=== PATIENT | female | born 1950 | race Caucasian/White ===

== ENCOUNTER 2016-07-19 09:40 | Inpatient (IN) | payer MEDICARE, BC ==
[2016-07-18 12:58] VITALS: BMI 19.6
[2016-07-19] VITALS (23 sets, daily range): BP systolic 84–135; BP diastolic 57–73; PULSE 58–76; RESP 12–25; Ht 154.9 cm; Wt 44.7 kg
[~2016-07-19] VITALS: Ht 154.9 cm; Wt 44.7 kg
[~2016-07-19 09:40] MED LIST: ACETAMINOPHEN 1000 MG/100 ML IVPB ONE; BACITRACIN 50000 UNITS INJ IRR ONE; GENTAMICIN 80 MG INJ INJ ONE; POLYMYXIN/BACITRACIN 1L IRRIG IRR ONE; ROCURONIUM 50 MG INJ ONE; THROMBIN 5000 UNIT VIAL TOP ONE
[2016-07-19] MEDS ORDERED: ESCI10TA PO (10:40)
[2016-07-19] MEDS ORDERED: PANT40SU PO (10:40)
[2016-07-19] MEDS ORDERED: BUPR-75 PO (10:40)
--- NOTE | 2016-07-19 10:58 | HPN ---
Date/Time of Note Date/Time of Note DATE: 07/19/16 TIME: 10:57 Interval H&P Admission Note Pt. seen H&P reviewed: No system changes WILFRED JIMENEZ MD Jul 19, 2016 10:58
[2016-07-19] MEDS ORDERED: VANCOMYCIN 1 GM (PMX) 250 ML IVPB ONE (11:00)
[2016-07-19] MEDS ORDERED: PROPOFOL 100 ML ONE (11:05)
[2016-07-19] MEDS ORDERED: ROPIVACAINE 0.5 % 30 ML VIAL ONE (11:05)
[2016-07-19] MEDS ORDERED: ROCURONIUM 50 MG INJ ONE (11:05)
[2016-07-19] MEDS ORDERED: MIDAZOLAM 1 MG/ML 2 ML INJ ONE (11:05)
[2016-07-19] MEDS ORDERED: FENTAnyl 50 MCG/ML VIAL ONE (11:05)
[2016-07-19] MEDS ORDERED: TRANEXAMIC ACID 1,000 MG in SOD CHLORIDE 0.9% 100 ML IV ONE (11:30)
[2016-07-19] MEDS ORDERED: PHENYLephrine (100 MCG/ML) 5ML SYG ONE (11:31)
[2016-07-19] MEDS ORDERED: THROMBIN 5000 UNIT VIAL ONE (12:32)
[2016-07-19] MEDS ORDERED: GELATIN SIZE 100 SPONGE ONE (12:32)
[2016-07-19] MEDS ORDERED: METOCLOPRAMIDE 10 MG INJ ONE (13:03)
[2016-07-19] MEDS ORDERED: DEXAMETHASONE 4 MG/ML 1 ML INJ ONE (13:03)
[2016-07-19] MEDS ORDERED: ONDANSETRON 4 MG INJ ONE (13:03)
[2016-07-19] MEDS ORDERED: FAMOTIDINE 20 MG INJ ONE (13:03)
[2016-07-19] MEDS ORDERED: KETOROLAC 30 MG INJ ONE (13:03)
[2016-07-19] MEDS ORDERED: GENTAMICIN 80 MG INJ ONE ×2 (14:25→14:28)
[2016-07-19] MEDS ORDERED: morphine (1 MG/ML) 10ML SYRINGE IV PRN ×3 (14:30)
[2016-07-19] MEDS ORDERED: HYDROmorphONE (0.2 MG/ML) 10ML SYG IV PRN ×3 (14:30)
[2016-07-19] MEDS ORDERED: hydrALAzine 20 MG INJ IV PRN (14:30)
[2016-07-19] MEDS ORDERED: ALBUMIN HUMAN 5% 250 ML IV PRN (14:30)
[2016-07-19] MEDS ORDERED: METOCLOPRAMIDE 10 MG INJ IV PRN (14:30)
[2016-07-19] MEDS ORDERED: EPHEDrine SULFATE 50 MG/5 ML SYG IV PRN (14:30)
[2016-07-19] MEDS ORDERED: FENTAnyl 50 MCG/ML VIAL IV PRN ×3 (14:30)
[2016-07-19] MEDS ORDERED: DIPHENHYDRAMINE 50 MG INJ IV PRN ×2 (14:30→15:00)
[2016-07-19] MEDS ORDERED: ONDANSETRON 4 MG INJ IV PRN ×2 (14:30→15:00)
[2016-07-19] MEDS: LACTATED RINGER'S 1,000 ML IV SCH ×2 (14:41→22:10)
[2016-07-19] MEDS ORDERED: BISACODYL 10 MG SUPP PR PRN (15:00)
[2016-07-19] MEDS ORDERED: HYDROmorphONE 1 MG/ML SYG IV PRN (15:00)
[2016-07-19] MEDS ORDERED: ZOLPIDEM 5 MG TAB PO PRN (15:00)
[2016-07-19] MEDS ORDERED: MAGNESIUM HYDROXIDE 30ML CUP PO PRN (15:00)
[2016-07-19] MEDS ORDERED: KETOROLAC 15 MG INJ IV PRN (15:00)
--- NOTE | 2016-07-19 15:11 | PDOCDIS ---
Discharge Instructions DIAGNOSIS Discharge Diagnosis: s/p left total shoulder replacement CONDITION Patient Condition: Good HOME CARE INSTRUCTIONS: Diet Instructions: Regular ACTIVITY: Activity Restrictions: Avoid heavy lifting Do not Drive Avoid Heavy Housework Bathing Restrictions: ShowerActivity Restrictions Comment: Stay in sling unless bathing. No lifting. FOLLOW UP/APPOINTMENTS Appointments As scheduled with Dr Jimenez: 1-2 weeks. OTHER ORDERS: Other Orders: May shower with mepilex dressing. Leave dressing on x 5 days, but remove it if it becomes detached. Must wear sling in public x 6 weeks. SCHOOL/WORK RELEASE May return to School/Work on: Sep 06, 2016 WILFRED JIMENEZ MD Jul 19, 2016 15:11
--- NOTE | 2016-07-19 15:53 | RADRPT ---
PROCEDURE: XR left Shoulder. CLINICAL INDICATION: Postoperative evaluation left shoulder TECHNIQUE: 2 views of the left shoulder are available for review. COMPARISON: None available FINDINGS: There is a left shoulder total arthroplasty in anatomic alignment without evidence of hardware comp lication. There is surrounding soft tissue swelling and soft tissue gas. There is moderate acromio clavicular osteoarthrosis. There is nonspecific presumed atelectasis at the left lung base. IMPRESSION: Left shoulder total arthroplasty in anatomic alignment as above. RPTAT: UU .Juan Carlos Hameed MD, MD Date Time Electronically viewed and signed by .Juan Carlos Hameed MD, MD on 07/19/2016 15:52 .K/
--- NOTE | 2016-07-19 17:07 | OPR ---
DATE OF OPERATION: 07/19/2016 PREOPERATIVE DIAGNOSIS: Left shoulder end-stage primary osteoarthritis. POSTOPERATIVE DIAGNOSES: Left shoulder end-stage primary osteoarthritis. PROCEDURE PERFORMED: Left total shoulder arthroplasty (uncemented subscapularis peel). SURGEON: Dr. Goode. DISPATCHER CHIEF COAL SLURRY: Dr. Bahman Bush. ANESTHESIA: General endotracheal with regional block. ANESTHESIOLOGIST: Dr. Maynard. ESTIMATED BLOOD LOSS: 150 mL. COMPLICATIONS: None. SPECIMENS: None. IMPLANTS: [employer]ech size 9 uncemented stem, size small Alpha cage glenoid, 4.5 mm replicator plate, size 41 x 16 mm humeral head. INDICATIONS: Jenna is a 66-year-old female who developed progressive left shoulder pain and disabi lity. X-rays and MRI scan revealed end-stage primary osteoarthritis but an intact rotator cuff. Af ter failing conservative measures, she elected to proceed with surgical intervention. DESCRIPTION OF PROCEDURE: The patient was brought to the operating room and placed supine on operat ing table. She was placed in the beach chair position. An uncomplicated regional block had been pl aced by the anesthesiologist. General anesthesia was induced. The correct surgical site had been i dentified and marked preoperatively. She was given prophylactic antibiotics as well as tranexamic a jered. The left upper extremity was prepped and draped in sterile surgical fashion. The arm was plac ed in an arm craven. A time-out was called. A standard deltopectoral incision was made and carried down to the deltopectoral interval. The [facility] alic vein was identified and taken laterally. It was protected throughout the case. A subdeltoid r elease was performed, and the supraspinatus was noted to be intact. The subscapularis was also inta ct. A self-retaining retractor was placed under the deltoid as well as carefully placed under the c onjoined tendon. The upper 1 cm of the pectoralis was released, and the biceps was identified. The biceps had significant synovitis but was otherwise intact. The bicipital groove was opened up. Th e biceps was tenodesed with a [id number] #2 suture to the upper border of the pectoralis. The proximal biceps was then excised. The bicipital groove was carefully prepared with the Bovie, and h emostasis was achieved. Using a scalpel, a subscapularis peel was performed, releasing the subscapu ck from the lesser tuberosity. Using a Bovie and progressively externally rotating the shoulder, the release of the subscapularis and anterior capsule was taken around inferiorly and posteriorly u ntil the shoulder could be dislocated. The humerus was dislocated, and retractors were carefully placed around the humeral head. There wer e small osteophytes which were removed. Using an oscillating saw, a humeral head osteotomy was per formed, cutting the humeral head anatomically in approximately 22 degrees of retroversion. The prox imal humerus was prepared with a reamer and prepared with sequential reaming and broaching up to a s ize 9. Drill holes were placed on either side of the lesser tuberosity and three #5 sutures were pa ssed in the bone lateral to the lesser tuberosity, around the humeral stem, and out the bone medial to the lesser tuberosity. A size 9 uncemented stem was then impacted without complication, achievin g a very good fit. A stem protector was placed, and attention was turned to the glenoid. The glenoid had end-stage osteoarthritis. A Uribe retractor was placed posteriorly, and the upper as pect of the subscapularis was released from beneath the coracoid all the way down to the glenoid. T he anterior capsule was excised. The anterior, inferior, and posterior labrum was also excised. An anterior shoulder retractor was placed over the anterior edge of the glenoid once the release had b een completed far enough to allow the surgeon's finger to palpate the glenoid neck. The glenoid side templated to a size small. Using the standard guide, a center peg hole was placed in the glenoid, and the glenoid was reamed with a size small reamer. Subchondral bone was left inta ct. Peripheral peg holes were drilled, and cement was mixed. Thrombin soaked Gelfoam sponges were used to obtain hemostasis within the peripheral peg hole. The cement was then placed in the 3 perip heral peg holes and impacted several times. A size small Alpha cage glenoid with bone graft in the center peg was then placed and impacted into place with a mallet, achieving an excellent fit. Attention was returned to the humerus. A size 4.5 mm replicator plate was affixed to the proximal h umeral stem, and a size 41 head was trialed to be most effective. A standard 41 x 17 mm head was th en impacted onto the humeral neck. The shoulder was reduced again and noted to have excellent stabi lity with 60% posterior subluxation, which self-reduced. The shoulder was copiously irrigated with pulse lavage throughout the case. The subscapularis was t hen repaired with the #5 sutures. A #2 FiberWire stitch was placed in the lateral aspect of the rota tor interval to augment the repair. A spinal needle was percutaneously placed into the joint for an injection of gentamicin at the end o f the case. The shoulder was again copiously irrigated and instruments were removed. The deltopectoral interval was closed with a running 0 Vicryl suture followed by a standard layered closure, ending with a Mep ilex dressing. 160 mg of gentamicin were then injected intraarticularly for antibiotic prophylaxis. The patient was placed in an UltraSling and brought to recovery room in stable condition. There w ere no complications DISPATCHER CHIEF COAL SLURRY: The assistance of Dr. Bush was essential throughout this case to help position the jacob ulder and space, to allow safe access to all areas of the shoulder joint, assist with placement of r etractors, performing the osteotomy, preparing the bone and implanting shoulder prosthesis. A skill ed general office assistant is always necessary in these cases. Dictated By: WILFRED RUDOLPH/MAIKOL Conf#: [id number] DID#: [id number]
[2016-07-19] MEDS ORDERED: DIAZEPAM 5 MG TAB PO PRN (18:00)
[2016-07-19] MEDS ORDERED: PANTOPRAZOLE (EC) 40 MG TAB PO SCH (18:00)
--- NOTE | 2016-07-19 18:28 | CONS ---
DATE OF ADMISSION: 07/19/2016 DATE OF CONSULTATION: 07/19/[address] Dr. Goode, Thank you very much for allowing me to evaluate this 66-year-old female who just underwent left shou lder surgery. HISTORICAL EVENTS: As you well know, this patient has had progressive pain involving her left shoul audrey and ultimately underwent surgery earlier today. Postoperatively, she notes minimal discomfort i nvolving his shoulder. She denies cough, wheezing, shortness of breath, nausea, vomiting, abdominal or chest pain. PAST MEDICAL HISTORY: Includes: 1. History of dyspepsia. 2. Depression. 3. Osteopenia. 4. Former smoker. 5. History of neck lift, breast augmentation, history of gastric ulcer and foot bunionectomy surger y. SOCIAL HISTORY: Socially drinks. Unemployed presently. FAMILY HISTORY: Positive for cerebrovascular disease. ALLERGIES: INCLUDE KEFLEX AND MACROBID. MEDICATIONS: 1. Abilify 5 mg per day. 2. Ambien 10 mg at bedtime p.r.n. 3. Vitamin D/calcium 250/125 b.i.d. 6. Lexapro 10 mg per day. 7. Protonix 20 mg b.i.d. 8. Valium 10 mg p.r.n. 9. Wellbutrin 450 mg daily. PHYSICAL EXAMINATION: GENERAL: Christoval female in no acute distress. VITAL SIGNS: Blood pressure 122/80, pulse 70, respirations are 20, she was afebrile. EYES: Extraocular muscles were full. NOSE, MOUTH, AND THROAT: Normal. NECK: Supple. There was no jugular venous distention, thyroid enlargement or adenopathy. Carotids 2+. LUNGS: Clear. HEART: Rhythm regular. ABDOMEN: Nontender. Liver and spleen were not palpable. No masses or tenderness were noted. EXTREMITIES: No edema. Calves nontender. Pulses 2+. IMPRESSION: 1. Stable postop left shoulder surgery. 2. History of depression. Meds to be reviewed with the patient and continued. 3. History of gastroesophageal reflux disease. Proton pump inhibitor will be continued. 4. We will evaluate daily for signs and symptoms of thromboembolic disease, although I expect her to be quite mobile soon. Dictated By: JONNA MEADOWS/MAIKOL Conf#: [id number] DID#: [id number]
[2016-07-19] MEDS: SENNA/DOCUSATE NA (8.6MG/50MG) TAB PO SCH (20:35)
[2016-07-19] MEDS ORDERED: GABAPENTIN 300 MG CAP PO SCH (21:00)
[2016-07-19] MEDS: VANCOMYCIN 500MG/NS (PMX) 100 ML IVPB SCH (22:10)
[2016-07-20] MEDS: LACTATED RINGER'S 1,000 ML IV SCH (05:03)
[2016-07-20 05:16] LABS: BASOPHILS % 0.3 % (0.0-2.0); EOSINOPHILS % 0.2 % (0.0-7.0); HEMATOCRIT 35.7 % (37.0-47.0); HEMOGLOBIN 12.1 g/dl (12.0-16.0); LYMPHOCYTES % 9.3 % (15.0-51.0); MEAN CORPUSCULAR HEMOGLOBIN 30.7 pg (29.0-33.0); MEAN CORPUSCULAR HGB CONC 33.8 g/dl (32.0-37.0); MEAN CORPUSCULAR VOLUME 90.7 fl (82.0-101.0); MEAN PLATELET VOLUME 7.7 fl (7.4-10.4); MONOCYTE # 0.8 10^3/ul (0.3-0.9); MONOCYTES % 7.2 % (0.0-11.0); NEUTROPHIL # 8.7 10^3/ul (1.6-7.5); PLATELET COUNT 245 10^3/UL (140-440); RED BLOOD COUNT 3.94 10^6/ul (4.20-5.40); RED CELL DISTRIBUTION WIDTH 14.2 % (11.5-14.5); UNCORRECTED WBC 10.5 10^3/ul (4.8-10.8); WHITE BLOOD COUNT 10.5 10^3/ul (4.8-10.8)
[2016-07-20 05:25] LABS: CONDITION 1
[2016-07-20 05:30] LABS: POTASSIUM 4.2 mmol/L (3.5-5.1)
[2016-07-20 05:32] LABS: CREATININE 0.83 mg/dl (0.44-1.00)
[2016-07-20 05:33] LABS: CALCIUM 8.2 mg/dl (8.4-10.2)
[2016-07-20] MEDS ORDERED: PANTOPRAZOLE (EC) 40 MG TAB PO SCH (07:50)
[2016-07-20 08:09] VITALS: BP 126/60; RESP 18
--- NOTE | 2016-07-20 08:39 | PN ---
Date/Time of Note Date/Time of Note DATE: 07/20/16 TIME: 08:34 Assessment/Plan VTE Prophylaxis VTE Prophylaxis Intervention: ambulation, SCD's Lines/Catheters IV Catheter Type (from Nrs): Peripheral IV Assessment/Plan Chief Complaint/Hosp Course STABLE COURSE, DOING WELL S/P LEFT TSA Problems: (1) Primary osteoarthritis, left shoulder Status: Resolved (2) S/P shoulder replacement Onset Date: 07/19/2016 Status: Acute Qualifiers: Laterality: left Qualified Code: Z96.612 - S/P shoulder replacement, left Assessment/Plan MOBILIZE WITH PT AND OT TODAY SLING ON AT ALL TIMES EXCEPT WHEN WITH PT/OT DISCHARGE HOME TODAY AFTER PT/OT Subjective 24 Hr Interval Summary Constitutional: no complaints Eyes: no complaints ENT: no complaints Cardiovascular: no complaints Gastrointestinal: no complaints Genitourinary: no complaints Musculoskeletal: no complaints Skin: no complaints Neurologic: no complaints Exam/Review of Systems Vital Signs Vitals Vital Signs Date Time Temp Pulse Resp B/P Pulse Ox O2 Delivery O2 Flow Rate FiO2 07/20/16 08:09 97.9 66 18 126/60 95 07/19/16 18:15 Room Air 07/19/16 15:33 2.0 Intake and Output 07/19/16 07/19/16 07/20/16 15:00 23:00 07:00 Intake Total 540 ml 1955 ml Output Total 600 ml Balance -60 ml 1955 ml Exam SLING IN PLACE. ARM AND HAND NVI. Constitutional: alert, oriented Psych: no complaints Extremities: normal pulses Results Result Diagram: 07/20/16 0420 07/20/16 0420 Results 24 hrs Laboratory Tests Test 07/20/16 04:20 Anion Gap 12 Basophils # 0.0 Basophils % 0.3 Blood Urea Nitrogen 13 Calcium Level 8.2 L Carbon Dioxide Level 27 Chloride Level 107 Creatinine 0.83 Eosinophils # 0.0 Eosinophils % 0.2 Glucose Level 90 Hematocrit 35.7 L Hemoglobin 12.1 Lymphocytes # 1.0 Lymphocytes % 9.3 L Mean Corpuscular Hemoglobin 30.7 Mean Corpuscular Hemoglobin Concent 33.8 Mean Corpuscular Volume 90.7 Mean Platelet Volume 7.7 Monocytes # 0.8 Monocytes % 7.2 Neutrophils # 8.7 H Neutrophils % 83.0 H Nucleated Red Blood Cells # 0.0 Nucleated Red Blood Cells % 0.0 Platelet Count 245 Potassium Level 4.2 Red Blood Count 3.94 L Red Cell Distribution Width 14.2 Sodium Level 142 White Blood Count 10.5 Medications Medications Current Medications Lactated Ringer's 1,000 ml @ 125 mls/hr Q8H IV Last administered on 07/20/16 05:03; Admin Dose 125 MLS/HR; Start 07/19/16 at 14:41 Vancomycin HCl (Vancocin) 100 ml @ 100 mls/hr Q12H IVPB Last administered on 22:10; Admin Dose 100 MLS/HR; Start 07/19/16 at 23:00; Stop 07/20/16 at 11:59 Senna/Docusate Sodium (Senokot-S) 1 tab BID PO Last administered on 07/19/16 20:35; Admin Dose 1 TAB; Start 07/19/16 at 21:00 Simethicone (Mylicon) 80 mg TID PRN PO DISTENSION/GAS/BLOATING; Start 07/19/16 at 15:00 Magnesium Hydroxide (Milk Of Mag) 30 ml BID PRN PO CONSTIPATION; Start at 15:00 Bisacodyl (Dulcolax Supp) 10 mg DAILY PRN [place] CONSTIPATION; Start 07/19/16 at 15 :00 Gabapentin (Neurontin) 300 mg HS PO Last administered on 07/19/16 20:45; Admin Dose 300 MG; Start 07/19/16 at 21:00 Oxycodone/ Acetaminophen (Percocet (5/ 325)) 1 tab Q4H PRN PO PAIN LEVEL 1-5; Start 07/19/16 at 15:00 Hydromorphone HCl (Dilaudid) 0.5 mg Q4H PRN IV PAIN LEVEL 1-5; Start 07/19/16 at 15:00 Ketorolac Tromethamine (Toradol) 15 mg Q6H PRN IV PAIN; Start 07/19/16 at 15:00 ; Stop 07/22/16 at 14:59 Ondansetron HCl (Zofran Inj) 4 mg Q6H PRN IV NAUSEA AND/OR VOMITING; Start 04/25 at 15:00 Diphenhydramine HCl (Benadryl) 25 mg Q6H PRN IV PRURITUS; Start 07/19/16 at 15: 00 Bupropion HCl (Wellbutrin Xl) 450 mg DAILY PO ; Start 07/20/16 at 09:00 Escitalopram Oxalate (Lexapro) 10 mg DAILY PO ; Start 07/20/16 at 09:00 Diazepam (Valium) 5 mg BID PRN PO ANXIETY; Start 07/19/16 at 18:00 WILFRED JIMENEZ MD Jul 20, 2016 08:39
[2016-07-20] MEDS: SENNA/DOCUSATE NA (8.6MG/50MG) TAB PO SCH (08:48)
[2016-07-20] MEDS: OXYCODONE/ACETAMINOPHEN (5/325) TAB PO PRN ×2 (08:51→13:47)
[2016-07-20] MEDS ORDERED: ESCITALOPRAM 10 MG TAB PO SCH (09:00)
[2016-07-20] MEDS ORDERED: BUPROPION (XL) 150 MG TAB PO SCH (09:00)
--- NOTE | 2016-07-20 09:13 | CONS ---
Date/Time of Note Date/Time of Note DATE: 07/20/16 TIME: 09:11 Assessment/Plan Assessment/Plan Additional Assessment/Plan 1. Stable postop left shoulder surger, labs rev 2. History of depression, OP meds continued 3. History of gastroesophageal reflux disease, asx 4. Can dc if ok with ortho and PT Consultation Date/Type/Reason Admit Date/Time Jul 19, 2016 at 09:40 Initial Consult Date Detailed Summary Respiratory: No cough, No shortness of breath Cardiovascular: No chest pain Gastrointestinal: no complaints Genitourinary: no complaints Musculoskeletal: bone/joint pain (mild left shoulder pain) Exam/Review of Systems Vital Signs Vitals Vital Signs Date Time Temp Pulse Resp B/P Pulse Ox O2 Delivery O2 Flow Rate FiO2 07/20/16 08:09 97.9 66 18 126/60 95 07/19/16 18:15 Room Air 07/19/16 15:33 2.0 Intake and Output 07/19/16 07/19/16 07/20/16 15:00 23:00 07:00 Intake Total 540 ml 1955 ml Output Total 600 ml Balance -60 ml 1955 ml Exam Neck: No jvd Respiratory: clear to auscultation Cardiovascular: regular rate and rhythm Gastrointestinal: soft Musculoskeletal: other (left shoulder immobilized ) Extremities: No edema (and no calf tend) Results Result Diagram: 07/20/16 0420 07/20/16 0420 Results 24 hrs Laboratory Tests Test 07/20/16 04:20 Anion Gap 12 Basophils # 0.0 Basophils % 0.3 Blood Urea Nitrogen 13 Calcium Level 8.2 L Carbon Dioxide Level 27 Chloride Level 107 Creatinine 0.83 Eosinophils # 0.0 Eosinophils % 0.2 Glucose Level 90 Hematocrit 35.7 L Hemoglobin 12.1 Lymphocytes # 1.0 Lymphocytes % 9.3 L Mean Corpuscular Hemoglobin 30.7 Mean Corpuscular Hemoglobin Concent 33.8 Mean Corpuscular Volume 90.7 Mean Platelet Volume 7.7 Monocytes # 0.8 Monocytes % 7.2 Neutrophils # 8.7 H Neutrophils % 83.0 H Nucleated Red Blood Cells # 0.0 Nucleated Red Blood Cells % 0.0 Platelet Count 245 Potassium Level 4.2 Red Blood Count 3.94 L Red Cell Distribution Width 14.2 Sodium Level 142 White Blood Count 10.5 Medications Medications Current Medications Lactated Ringer's 1,000 ml @ 125 mls/hr Q8H IV Last administered on 07/20/16 05:03; Admin Dose 125 MLS/HR; Start 07/19/16 at 14:41 Vancomycin HCl (Vancocin) 100 ml @ 100 mls/hr Q12H IVPB Last administered on 22:10; Admin Dose 100 MLS/HR; Start 07/19/16 at 23:00; Stop 07/20/16 at 11:59 Senna/Docusate Sodium (Senokot-S) 1 tab BID PO Last administered on 07/20/16 08:48; Admin Dose 1 TAB; Start 07/19/16 at 21:00 Simethicone (Mylicon) 80 mg TID PRN PO DISTENSION/GAS/BLOATING; Start 07/19/16 at 15:00 Magnesium Hydroxide (Milk Of Mag) 30 ml BID PRN PO CONSTIPATION; Start at 15:00 Bisacodyl (Dulcolax Supp) 10 mg DAILY PRN [place] CONSTIPATION; Start 07/19/16 at 15 :00 Gabapentin (Neurontin) 300 mg HS PO Last administered on 07/19/16 20:45; Admin Dose 300 MG; Start 07/19/16 at 21:00 Oxycodone/ Acetaminophen (Percocet (5/ 325)) 1 tab Q4H PRN PO PAIN LEVEL 1-5 Last administered on 07/20/16 08:51; Admin Dose 1 TAB; Start 07/19/16 at 15:00 Hydromorphone HCl (Dilaudid) 0.5 mg Q4H PRN IV PAIN LEVEL 1-5; Start 07/19/16 at 15:00 Ketorolac Tromethamine (Toradol) 15 mg Q6H PRN IV PAIN; Start 07/19/16 at 15:00 ; Stop 07/22/16 at 14:59 Ondansetron HCl (Zofran Inj) 4 mg Q6H PRN IV NAUSEA AND/OR VOMITING; Start 04/25 at 15:00 Diphenhydramine HCl (Benadryl) 25 mg Q6H PRN IV PRURITUS; Start 07/19/16 at 15: 00 Bupropion HCl (Wellbutrin Xl) 450 mg DAILY PO Last administered on 1/11/17at 08 :48; Admin Dose 450 MG; Start 07/20/16 at 09:00 Escitalopram Oxalate (Lexapro) 10 mg DAILY PO Last administered on 07/20/16t 08 :48; Admin Dose 10 MG; Start 07/20/16 at 09:00 Diazepam (Valium) 5 mg BID PRN PO ANXIETY; Start 07/19/16 at 18:00 JONNA TRAN MD Jul 20, 2016 09:12
[2016-07-20] MEDS: VANCOMYCIN 500MG/NS (PMX) 100 ML IVPB SCH (11:20)
[2016-07-20] MEDS ORDERED: DOXY-220 PO (12:09)
== END 2016-07-20 14:15 | disposition home or self-care (01) | DRG 483 ==
LOC: REC 09:40 → MS1 16:30
PROVIDERS: ADMIT Orthopaedic Surgery Sports Medicine; ATTEND Orthopaedic Surgery Sports Medicine
PROC: 0RRK0JZ Replacement of Left Shoulder Joint with Synthetic Substitute, Open Approach (ICD-10-PCS; principal; 2016-07-19 11:00)
DX: M19.012 Primary osteoarthritis, left shoulder (principal); F32.9 Major depressive disorder, single episode, unspecified; K21.9 Gastro-esophageal reflux disease without esophagitis
CPT/HCPCS: 73030; 80048; 85025; 88304; 88311; 97167; J0131; J1100; J1580; J1885; J2250; J2370; J2405; J2765; J2795; J3010; J3370; J7120